=== PATIENT | female | born 1940 | race Caucasian/White ===

== ENCOUNTER 2018-06-29 08:48 | Outpatient (CLI) | payer MEDICARE, MEDICAID | END 2018-06-29 08:49 | disposition home or self-care (01) | LOC: BICMAMMO 08:48 | PROVIDERS: ATTEND Nurse Practitioner Family | DX: Z12.31 Encounter for screening mammogram for malignant neoplasm of breast (principal); R71.8 Other abnormality of red blood cells; E78.2 Mixed hyperlipidemia; R74.8 Abnormal levels of other serum enzymes; Z78.0 Asymptomatic menopausal state; M85.89 Other specified disorders of bone density and structure, multiple sites | CPT/HCPCS: 76705; 77063; 77067; 77080 ==

== ENCOUNTER 2019-04-12 10:50 | Inpatient (IN) | payer MEDICARE, MEDICAID ==
[2019-04-12 11:40] LABS: #Basophils 0.1 thou/uL (0.0-0.2); #Eosinphils 0.1 thou/uL (0.0-0.7); #Lymphocytes 2.3 thou/uL (1.20-3.40); #Monocytes 0.8 thou/uL (0.11-0.59); #Neutrophils 5.8 thou/uL (1.40-6.50); %Basophils 0.9 % (0.0-1.0); %Eosinophils 1.4 % (0.0-10.0); %Lymphocytes 24.8 % (21.0-51.0); %Monocytes 9.1 % (0.0-10.0); %Neutrophils 63.8 % (42.0-75.0); Hemoglobin 15.1 g/dL (12.0-16.0); Mean Corpuscular HGB CONC 33.4 g/dL (32.0-36.0); Mean Corpuscular Hemoglobin 31.4 pg (27.0-31.0); Mean Platelet Volume 7.7 fL (7.4-10.4); Platelet Count 232 thou/uL (130-400); RBC Distribution Width 14.1 % (11.5-14.5); White Blood Cell (WBC) Count 9.1 thou/uL (4.8-10.8)
[2019-04-12 12:00] LABS: Acetaminophen Less than 6.0 mcg/mL (10.0-30.0); Alcohol Less than 10 mg/dL (Less than 10); Salicylate Less than 8.0 mg/dL (15.0-30.0)
[2019-04-12 12:03] LABS: ALT (SGPT) 31 U/L (8-55); AST (SGOT) 155 U/L (5-34); Albumin 4.5 g/dL (3.4-4.8); Alkaline Phosphatase 75 U/L (40-150); Anion Gap 14 mmol/L (10-20); BUN (Urea Nitrogen) 19 mg/dL (9.8-20.1); Bilirubin, Total 0.8 mg/dL (0.2-1.2); CK (CPK) 397 U/L (29-168); Calc. Creatinine Clearance 0 mL/min (70-130); Carbon Dioxide 31 mmol/L (23-31); Chloride 84 mmol/L (98-107); Estimated GFR-MDRD 19; Globulin 3.6 g/dL (2.4-3.5); Glucose 90 mg/dL (83-110); Potassium 3.1 mmol/L (3.5-5.1); Protein, Total 8.1 g/dL (6.0-8.3); Sodium 126 mmol/L (136-145)
--- NOTE | 2019-04-12 12:42 | CT ---
CT CERVICAL SPINE WITH CORONAL AND SAGITTAL REFORMATIONS AND NO IV CONTRAST: HISTORY: Fall, neck pain FINDINGS: Multilevel degenerative changes are present. There is loss of cervical lordosis with mild reversal. No fracture, subluxation or facet malalignment is identified. No prevertebral soft tissue swelling is apparent. The visualized lung apices are unremarkable. IMPRESSION: No CT evidence for fracture or traumatic subluxation.
--- NOTE | 2019-04-12 12:42 | CT ---
BRAIN CT WITHOUT IV CONTRAST: History: Depression. Fall, hitting head one week ago with injury. FINDINGS: Age related atrophy and chronic white matter ischemic change. No mass or midline shift. No intra or e xtraaxial hemorrhage. Sinuses and mastoids are clear of acute process. Minimal motion artifact in the most inferior scan/slice levels. IMPRESSION: Atrophy and chronic white matter ischemic changes without mass or bleed or other acute process. POS: [facility]
[2019-04-12 13:19] LABS: Bilirubin Negative (Negative); Blood, Urine Moderate (Negative); Clarity TURBID (Clear); Glucose, Urine (Dipstick) Negative (Negative); Leukocyte Large (Negative); Nitrite Positive (Negative); Protein, Urine (Dipstick) 30 mg/dL (Neg-Trace); Specific Gravity, Urine 1.013 (1.002-1.036); Urobilinogen 0.2 mg/dL (0.2-1.0); pH, Urine 5.5 (5.0-9.0)
[2019-04-12 13:22] LABS: Bacteria/HPF 4+ HPF (None Seen)
[2019-04-12 13:28] LABS: Amphetamine Not Detected (NotDetected); Barbiturates Screen Not Detected (NotDetected); Benzodiazepine Screen Not Detected (NotDetected); Cocaine Metabolite Screen Not Detected (NotDetected); Medtox Control Line Valid? VALID (VALID); Medtox Reader # READER 1; Methadone Not Detected (NotDetected); Methamphetamine Not Detected (NotDetected); Opiate Screen Not Detected (NotDetected); Oxycodone Screen Not Detected (NotDetected); Phencyclidine (PCP) Not Detected (NotDetected); THC/Cannabinoid Screen Not Detected (NotDetected); Tricyclic Screen Not Detected (NotDetected)
[2019-04-12 13:42] LABS: Hyaline Casts/LPF NONE SEEN LPF (0-3 Hyaline); Other Casts/LPF None Seen LPF (0-3 Hyaline)
[2019-04-12] MEDS ORDERED: Ondansetron ODT 4 MG TAB SL PRN (15:56)
[2019-04-12] MEDS ORDERED: Acetaminophen 325 MG TAB PO PRN (15:56)
[2019-04-12] MEDS ORDERED: Ondansetron PF 4 MG/2 ML Vial IVP PRN (15:56)
[2019-04-12] MEDS ORDERED: Sodium Chloride 0.9% 1,000 ML IV SCH (15:56)
[2019-04-12] MEDS: cefTRIAXone\\ROCEPHIN 2 GM in Sodium Chloride 0.9% 100 ML IVPB SCH (18:44)
[2019-04-12] MEDS: Potassium Chloride 20 MEQ TAB PO SCH ×2 (18:47→22:21)
[2019-04-12] MEDS: Metoprolol Tartrate 25 MG TAB PO SCH (21:07)
[2019-04-12] MEDS: Sodium Chloride 0.9% 1,000 ML IV SCH (21:35)
[2019-04-13] MEDS: Potassium Chloride 20 MEQ TAB PO SCH (02:12)
[2019-04-13 05:36] LABS: Anion Gap 11 mmol/L (10-20); BUN (Urea Nitrogen) 17 mg/dL (9.8-20.1); Calc. Creatinine Clearance 18 mL/min (70-130); Calcium 8.5 mg/dL (7.8-10.44); Carbon Dioxide 29 mmol/L (23-31); Chloride 91 mmol/L (98-107); Estimated GFR-MDRD 26; Glucose 108 mg/dL (83-110); Potassium 3.9 mmol/L (3.5-5.1); Sodium 127 mmol/L (136-145)
[2019-04-13 05:57] LABS: Thyroid Stimulating Hormone 60.5246 uIU/mL (0.35-4.94)
[2019-04-13] MEDS: Sodium Chloride 0.9% 1,000 ML IV SCH ×2 (06:06→20:46)
[2019-04-13 06:25] LABS: Free T4 (Free Thyroxine) Less than 0.40 ng/dL (0.70-1.48)
--- NOTE | 2019-04-13 08:11 | HP ---
CHIEF COMPLAINT: Depression, suicidal ideation, and drug overdose with gabapentin. HISTORY OF PRESENT ILLNESS: Ms. Knutson is an 78-year-old female with past medical history of hypertension, hypothyroidism, anxiety disorder, came with drug overdose of gabapentin. The patient claims she has taken gabapentin about 6 g around 8 p.m. last night with intention of committing suicide. The patient states she is very depressed and does not want to live anymore because there is no one to take care of her. The patient also has a history of fall a week ago sustaining some bruising to the left side of the face. The patient is also not taking fluids very well because she does not want to drink anything because she wants to . The neighbors called EMS because of the patient's condition and she was brought to the ER where she was evaluated and found to have hyponatremia as well as acute kidney injury and she is being admitted for further evaluation and management. PAST MEDICAL HISTORY: 1. Hypertension. 2. Hyperlipidemia. 3. Anxiety disorder. 4. Hypothyroidism. PAST SURGICAL HISTORY: Status post stent placement, status post . CURRENT MEDICATIONS: The patient takes: 1. Gabapentin 600 mg t.i.d. 2. Metoprolol 25 mg b.i.d. 3. Levothyroxine possibly 50 mcg daily. ALLERGIES: NKDA. FAMILY HISTORY: Nothing contributory. SOCIAL HISTORY: The patient lives with her . No history of smoking. No history of alcohol abuse. REVIEW OF SYSTEMS: CARDIOVASCULAR: No chest pain. No shortness of breath. RESPIRATORY: No fever or cough. GASTROINTESTINAL: No nausea, vomiting, or abdominal pain. CENTRAL NERVOUS SYSTEM: No headache. No dizziness. PHYSICAL EXAMINATION: GENERAL: The patient is alert, awake, and oriented x2. VITAL SIGNS: Temperature 98, pulse 64, respirations 20, and blood pressure 170/100. HEENT: Head is normocephalic, atraumatic. Pupils are equal and reactive to light. Nasopharynx is pale and dry. NECK: Supple. No JVD. LUNGS: Breath sounds diminished bilaterally. Percussion dull. No rales. No rhonchi. HEART: S1 and S2, regular. ABDOMEN: Soft. No distention. No tenderness. Normal bowel sounds present. RECTAL: Deferred. CENTRAL NERVOUS SYSTEM: The patient is awake and alert, but not well oriented. Motor system, power 4/5 in all extremities. Deep tendon reflex 2+ bilaterally. Plantars downgoing. Sensory intact. SKIN: There is ecchymosis on the left side of the face. LABORATORY DATA: CBC shows WBC 9, hemoglobin 15, hematocrit 45, and platelets 232. Metabolic panel; sodium 126, potassium 3.1, chloride 84, CO2 31, BUN 19, creatinine 2.4, AST 155, TSH was 80. Urinalysis showed wbc's greater than 50, rbc's 7-10, leukocyte esterase large, bacteria 4+. Urine drug screen negative. CT of the brain showed chronic white matter ischemic changes without any acute changes. CTA of the C-spine was negative. EKG showed sinus rhythm, no acute ST-T changes seen. ASSESSMENT: 1. Drug overdose with gabapentin and suicidal ideation. 2. Acute kidney injury. 3. Urinary tract infection. 4. Hypertension, uncontrolled. 5. Hypokalemia. 6. Hyponatremia. 7. Depression. 8. History of coronary artery disease. PLAN: 1. Vital signs q.4 hours. 2. Activity as tolerated. 3. Allergies, NKDA. 4. Diet, regular. 5. IV fluid, normal saline at 80 mL/h. 6. KCl replacement. 7. Continue home medications. 8. Rocephin 2 g IV piggyback daily. 9. Urine cultures. 10. [facility] consult. Job ID: [id number]
[2019-04-13] MEDS: Metoprolol Tartrate 25 MG TAB PO SCH ×2 (08:31→20:49)
[2019-04-13] MEDS ORDERED: Levothyroxine Sodium 100 MCG TAB PO SCH (10:00)
[2019-04-13] MEDS: cefTRIAXone\\ROCEPHIN 2 GM in Sodium Chloride 0.9% 100 ML IVPB SCH (18:01)
[2019-04-13] MEDS: Mirtazapine 15 MG TAB PO SCH (20:49)
[2019-04-14] MEDS: Sodium Chloride 0.9% 1,000 ML IV SCH (01:21)
[2019-04-14] MEDS: Levothyroxine Sodium 100 MCG TAB PO SCH (05:29)
[2019-04-14 05:46] VITALS: BMI 22.6
[2019-04-14] MEDS: Metoprolol Tartrate 25 MG TAB PO SCH ×2 (08:49→20:27)
[2019-04-14 10:09] LABS: #Basophils 0.1 thou/uL (0.0-0.2); #Eosinphils 0.1 thou/uL (0.0-0.7); #Lymphocytes 1.7 thou/uL (1.20-3.40); #Monocytes 0.5 thou/uL (0.11-0.59); #Neutrophils 3.9 thou/uL (1.40-6.50); %Basophils 0.9 % (0.0-1.0); %Eosinophils 1.6 % (0.0-10.0); %Lymphocytes 27.4 % (21.0-51.0); %Monocytes 8.5 % (0.0-10.0); %Neutrophils 61.6 % (42.0-75.0); Hemoglobin 13.7 g/dL (12.0-16.0); Mean Corpuscular HGB CONC 33.4 g/dL (32.0-36.0); Mean Corpuscular Hemoglobin 31.8 pg (27.0-31.0); Mean Corpuscular Volume 95.3 fL (78.0-98.0); Mean Platelet Volume 7.4 fL (7.4-10.4); Platelet Count 191 thou/uL (130-400); RBC Distribution Width 14.3 % (11.5-14.5); Red Blood Cell (RBC) Count 4.32 mill/uL (4.20-5.40); White Blood Cell (WBC) Count 6.3 thou/uL (4.8-10.8)
[2019-04-14 10:29] LABS: Anion Gap 10 mmol/L (10-20); BUN (Urea Nitrogen) 14 mg/dL (9.8-20.1); Calc. Creatinine Clearance 27 mL/min (70-130); Calcium 8.6 mg/dL (7.8-10.44); Carbon Dioxide 28 mmol/L (23-31); Cardiac Risk 3.6 (Less than 4.5); Chloride 97 mmol/L (98-107); Cholesterol 241 mg/dl (< 200 Desired); Estimated GFR-MDRD 35; Glucose 88 mg/dL (83-110); HDL Cholesterol 67 mg/dL (>60 Neg Risk); LDL Cholesterol, Calculated 149 mg/dL; Potassium 3.5 mmol/L (3.5-5.1); Sodium 131 mmol/L (136-145); Triglycerides 125 mg/dL (Less than 150)
[2019-04-14] MEDS: cefTRIAXone\\ROCEPHIN 2 GM in Sodium Chloride 0.9% 100 ML IVPB SCH (17:19)
[2019-04-14] MEDS ORDERED: Potassium Chloride 20 MEQ TAB PO SCH (20:15)
[2019-04-14] MEDS: Ciprofloxacin 500 MG TAB PO SCH (20:27)
[2019-04-14] MEDS: Mirtazapine 15 MG TAB PO SCH (20:28)
[2019-04-15] MEDS: Ciprofloxacin 500 MG TAB PO SCH ×2 (05:10→20:04)
[2019-04-15] MEDS: Levothyroxine Sodium 100 MCG TAB PO SCH (05:10)
[2019-04-15] MEDS: Metoprolol Tartrate 25 MG TAB PO SCH (08:20)
--- NOTE | 2019-04-15 09:36 | PQF ---
CLINICAL DOCUMENTATION IMPROVEMENT CLARIFICATION FORM: ICD-10 Updated PLEASE DO AN ADDENDUM TO THE PROGRESS NOTE WITH ANY DOCUMENTATION UPDATES OR ADDITIONS AND CARRY THROUGH TO DC SUMMARY. THANK YOU. DATE: 04/15/2019 ATTN: Dr. Arora Please exercise your independent, professional judgment in responding to the clarification form. Clinical indicators are provided on the bottom of this form for your review Please check appropriate box(s): [y ] I (concur) with the Wound Care findings as stated below. [ ] Pressure Ulcer: (Stage I: Erythema; Stage II: Partial thickness; Stage III : Full thickness; Stage IV: Necrosis to muscle/bone) [ ] Location: POA: [ ] Yes [ ] No [ ] Unable to determine Stage (I to IV): __(Left__Right__Bilateral__N/A__) [ ] Location: POA: [ ] Yes [ ] No [ ] Unable to determine Stage (I to IV): __(Left__Right__Bilateral__N/A__) [ ] No pressure ulcer diagnosis [ ] Deep tissue injury [ ] Other diagnosis [ ] Unable to determine In addition, please specify: Present on Admission (POA): [y ] Yes [ ] No [ ] Unable to determine For continuity of documentation, please document condition throughout progress notes and discharge summary. Thank You. CLINICAL INDICATORS - SIGNS / SYMPTOMS / LABS WOUND CARE ASSESSMENT 04/13: Coccyx Pressure Ulcer Stage III RISKS: H&P 04/12: 78 yo. Drug overdose with gabapentin and suicidal ideation. GLADYS. UTI. HTN. Hyponatremia. Depression. TREATMENT: Order 04/12: Wound Care Eval / Treat Pre-ulcer skin changes limited to persistent focal edema (Stage 1) Abrasion, blister, partial thickness skin loss involving epidermis and/or dermis (Stage 2) Full thickness skin loss involving damage or necrosis of SQ tissue. (Stage 3) Necrosis of soft tissue through to underlying muscle, tendon, or bone. (Stage 4) Purple or maroon discolored skin or blood filled blister Thank you, Akanksha (This form is maintained as a part of the permanent medical record) 2015 [employer], [employer]. All Rights Reserved Akanksha Alves RN, [email or web address] [email or web address] Office: [phone] [facility]
[2019-04-15] MEDS ORDERED: Metoprolol Tartrate 25 MG TAB PO SCH (10:45)
[2019-04-15] MEDS: Metoprolol Tartrate 50 MG TAB PO SCH (20:04)
[2019-04-15] MEDS: Mirtazapine 15 MG TAB PO SCH (20:04)
[2019-04-16] MEDS: Ciprofloxacin 500 MG TAB PO SCH ×2 (05:17→20:09)
[2019-04-16] MEDS: Levothyroxine Sodium 100 MCG TAB PO SCH (05:17)
[2019-04-16 06:57] LABS: #Basophils 0.1 thou/uL (0.0-0.2); #Eosinphils 0.2 thou/uL (0.0-0.7); #Lymphocytes 2.4 thou/uL (1.20-3.40); #Monocytes 0.6 thou/uL (0.11-0.59); #Neutrophils 4.4 thou/uL (1.40-6.50); %Eosinophils 2.7 % (0.0-10.0); %Lymphocytes 31.5 % (21.0-51.0); %Monocytes 7.3 % (0.0-10.0); %Neutrophils 57.6 % (42.0-75.0); Hemoglobin 13.3 g/dL (12.0-16.0); Mean Corpuscular HGB CONC 33.4 g/dL (32.0-36.0); Mean Corpuscular Hemoglobin 31.9 pg (27.0-31.0); Mean Corpuscular Volume 95.4 fL (78.0-98.0); Mean Platelet Volume 7.8 fL (7.4-10.4); Platelet Count 180 thou/uL (130-400); RBC Distribution Width 14.3 % (11.5-14.5); Red Blood Cell (RBC) Count 4.17 mill/uL (4.20-5.40); White Blood Cell (WBC) Count 7.6 thou/uL (4.8-10.8)
[2019-04-16 07:19] LABS: Anion Gap 13 mmol/L (10-20); BUN (Urea Nitrogen) 9 mg/dL (9.8-20.1); Calc. Creatinine Clearance 32 mL/min (70-130); Calcium 8.7 mg/dL (7.8-10.44); Carbon Dioxide 25 mmol/L (23-31); Chloride 96 mmol/L (98-107); Estimated GFR-MDRD 42; Glucose 90 mg/dL (83-110); Potassium 4.6 mmol/L (3.5-5.1); Sodium 129 mmol/L (136-145)
[2019-04-16] MEDS: Metoprolol Tartrate 50 MG TAB PO SCH ×2 (08:04→20:16)
[2019-04-16] MEDS ORDERED: Amlodipine 5 MG TAB PO SCH (13:15)
[2019-04-16] MEDS ORDERED: Ondansetron PF 4 MG/2 ML Vial IVP SCH (17:00)
[2019-04-16] MEDS: Mirtazapine 15 MG TAB PO SCH (20:09)
[2019-04-16] MEDS ORDERED: Ondansetron ODT 4 MG TAB PO SCH (21:00)
[2019-04-17] MEDS: Ciprofloxacin 500 MG TAB PO SCH ×2 (06:12→20:42)
[2019-04-17] MEDS: Levothyroxine Sodium 100 MCG TAB PO SCH (06:12)
[2019-04-17] MEDS: Amlodipine 5 MG TAB PO SCH (09:32)
[2019-04-17] MEDS: Metoprolol Tartrate 50 MG TAB PO SCH ×2 (09:32→20:42)
[2019-04-17] MEDS: Mirtazapine 15 MG TAB PO SCH (20:42)
[2019-04-18] MEDS: Levothyroxine Sodium 100 MCG TAB PO SCH (06:14)
[2019-04-18] MEDS: Ciprofloxacin 500 MG TAB PO SCH ×2 (06:14→20:03)
[2019-04-18] MEDS: Amlodipine 5 MG TAB PO SCH (09:02)
[2019-04-18] MEDS: Metoprolol Tartrate 50 MG TAB PO SCH ×2 (09:03→20:04)
[2019-04-18 11:56] LABS: Anion Gap 10 mmol/L (10-20); BUN (Urea Nitrogen) 9 mg/dL (9.8-20.1); Calc. Creatinine Clearance 32 mL/min (70-130); Carbon Dioxide 30 mmol/L (23-31); Chloride 91 mmol/L (98-107); Estimated GFR-MDRD 42; Glucose 89 mg/dL (83-110); Potassium 3.9 mmol/L (3.5-5.1); Sodium 127 mmol/L (136-145)
[2019-04-18] MEDS: Sodium Chloride 0.9% 1,000 ML IV SCH ×4 (14:17→20:09)
[2019-04-18 16:58] LABS: Potassium, Urine 40.8 mmol/L
[2019-04-18] MEDS: Ondansetron ODT 4 MG TAB PO PRN (18:15)
[2019-04-18] MEDS: Mirtazapine 15 MG TAB PO SCH (20:04)
[2019-04-19] MEDS: Levothyroxine Sodium 100 MCG TAB PO SCH (05:33)
[2019-04-19] MEDS: Sodium Chloride 0.9% 1,000 ML IV SCH (05:34)
[2019-04-19] MEDS: Ciprofloxacin 500 MG TAB PO SCH ×2 (05:34→21:14)
[2019-04-19 06:52] LABS: White Blood Cell (WBC) Count 7.3 thou/uL (4.8-10.8)
[2019-04-19 06:54] LABS: Anion Gap 13 mmol/L (10-20); BUN (Urea Nitrogen) 10 mg/dL (9.8-20.1); Calc. Creatinine Clearance 39 mL/min (70-130); Calcium 8.4 mg/dL (7.8-10.44); Carbon Dioxide 22 mmol/L (23-31); Chloride 95 mmol/L (98-107); Estimated GFR-MDRD 52; Glucose 79 mg/dL (83-110); Potassium 3.7 mmol/L (3.5-5.1); Sodium 126 mmol/L (136-145)
[2019-04-19 06:57] LABS: Band 7 % (5-11); Eosinophils 2 % (0-10); Hemoglobin 12.5 g/dL (12.0-16.0); Lymphocytes 31 % (21-51); MDiff Complete? YES; Mean Corpuscular HGB CONC 33.8 g/dL (32.0-36.0); Mean Corpuscular Hemoglobin 32.1 pg (27.0-31.0); Mean Corpuscular Volume 95.2 fL (78.0-98.0); Mean Platelet Volume 8.8 fL (7.4-10.4); Monocytes 13 % (0-10); Neutrophil 45 % (42-75); Platelet Count 144 thou/uL (130-400); RBC Distribution Width 14.4 % (11.5-14.5); Reactive Lymphocytes 2 % (0-10)
[2019-04-19] MEDS: Metoprolol Tartrate 50 MG TAB PO SCH ×2 (09:55→21:13)
[2019-04-19] MEDS: Amlodipine 5 MG TAB PO SCH ×2 (09:55→12:04)
[2019-04-19] MEDS ORDERED: Furosemide 20 MG/2 ML VIAL SLOW IVP SCH (10:45)
[2019-04-19 17:24] LABS: Creatinine, Urine Less than 20.00 mg/dL (47-110); Sodium, Urine 102 mmol/L (Not Available)
[2019-04-19] MEDS: Mirtazapine 15 MG TAB PO SCH (21:14)
--- NOTE | 2019-04-19 21:23 | CON ---
DATE OF CONSULTATION: HISTORY OF PRESENT ILLNESS: Ms. Knutson is an 78-year-old white female with known history of depression and tried to overdose with her medication gabapentin. She was noted to be hyponatremic. Review of her medical record showed that she is chronically hyponatremic. We are now being consulted for further management of this hyponatremia. Of interest, this patient is asymptomatic with her hyponatremia. REVIEW OF SYSTEMS: Positive for decreased hearing. No chest pain or shortness of breath. No syncopal episode. No productive cough. No abdominal pain. No nausea. No vomiting. No gross hematuria. No dysuria. No urinary frequency. Appetite and energy levels are fair. HOME MEDICATIONS: Included gabapentin 600 mg p.o. t.i.d., metoprolol 25 mg b.i.d., and levothyroxine 200 mcg tablet daily. PAST MEDICAL HISTORY: Chronic hyponatremia, hypertension, hyperlipidemia, anxiety disorder, hypothyroidism and history of rheumatoid arthritis?. PAST SURGICAL HISTORY: Status post cardiac cath, status post coronary stent placement, and status post section. SOCIAL HISTORY: The patient lives in [place]. Lives with her and 2 children with 1 . No alcohol intake. No smoking. No drug abuse. No blood transfusion. Education, nursing school. 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 FAMILY HISTORY: No family history of ESRD. ALLERGIES: NO KNOWN DRUG ALLERGIES. TRAUMA: Recently status post fall. IMMUNIZATION: Not up-to-date. HOSPITALIZATIONS: Please see past medical history. PHYSICAL EXAMINATION: VITAL SIGNS: Blood pressure is noted at 153/64, heart rate 64, respiratory rate 16, temperature 97.7, and pulse oximetry 98%. GENERAL: Noted to be awake, alert, comfortable, not in distress. SKIN: Adequate turgor. HEENT: Pinkish conjunctivae. Anicteric sclerae. No neck mass. No carotid bruits. No JVD. CHEST: No deformities. LUNGS: Clear breath sounds. HEART: Normal sinus rhythm. No murmur. No gallops. No rubs. ABDOMEN: Globular, soft, nontender. No masses. EXTREMITIES: No edema. No deformities. HOSPITAL MEDICATIONS: Included Norvasc 5 mg daily, Cipro 500 mg p.o. b.i.d., levothyroxine 200 mcg tablet daily, Lopressor 50 mg p.o. b.i.d., Remeron 15 mg at bedtime, Zofran p.r.n., and Protonix 40 mg tablet once a day. LABORATORIES: April 19, 2019; white count 7.3, hemoglobin 12.5, platelet count 144,000. Urine sodium is 102, urine creatinine is 20. Urine osmolality 255. On April 16, 2019, urinalysis, protein is 30, rbc's 7-10, wbc's greater than 50. April 19, 2019, sodium 126, potassium 3.7, chloride 95, carbon dioxide 22, BUN 10, creatinine 1.02, glucose 79, calcium 8.4, uric acid 2.3 - markedly decreased. April 18, 2019, sodium 127. April 16, 2019, sodium 129. April 14, 2019, sodium is 131. April 19, creatinine 1.02, April 18, creatinine 1.24 and April 14, 2019, creatinine 1.45. April 13, 2019, creatinine 1.89. April 12, 2019, creatinine was 2.46. June 09, 2018 creatinine 1.49. ASSESSMENT AND PLAN: 1. Acute kidney injury - consider hemodynamically-mediated renal dysfunction. The patient was empirically volume repleted with significant improvement of the renal dysfunction. Most recent creatinine now is 1.02, which is near normal. Continue to hold of any nephrotoxic drugs - hold off any diuretics or NSAIDs. 2. Chronic hyponatremia - with the low uric acid. I suspect this patient may have underlying syndrome of inappropriate antidiuretic hormone secretion. Continue free water restriction. Consider starting on sodium chloride 1 g p.o. t.i.d. It is also possible that this patient's hypothyroidism may be contributing to her hyponatremia. Please note, she had a TSH of 60.5. It is currently being corrected with levothyroxine/Synthroid replacement. Please note that the TSH was higher on the day of admission where it was noted to be at 80.3. 3. Since the patient is clinically asymptomatic, there is no indication to give her any hypertonic saline. Sodium chloride 1000 g t.i.d. will be started. 4. Overall agree with current management of syndrome of inappropriate antidiuretic hormone secretion. supportive. Continue to optimize her thyroid replacement. Job ID: [id number]
[2019-04-20 06:00] LABS: Anion Gap 10 mmol/L (10-20); BUN (Urea Nitrogen) 11 mg/dL (9.8-20.1); Calc. Creatinine Clearance 37 mL/min (70-130); Calcium 8.4 mg/dL (7.8-10.44); Carbon Dioxide 27 mmol/L (23-31); Chloride 92 mmol/L (98-107); Estimated GFR-MDRD 49; Glucose 85 mg/dL (83-110); Potassium 3.4 mmol/L (3.5-5.1); Sodium 126 mmol/L (136-145)
[2019-04-20] MEDS: Levothyroxine Sodium 100 MCG TAB PO SCH (06:09)
[2019-04-20] MEDS: Ciprofloxacin 500 MG TAB PO SCH ×2 (06:09→20:03)
[2019-04-20] MEDS ORDERED: Potassium Chloride 20 MEQ TAB PO SCH (08:15)
[2019-04-20] MEDS: Sodium Chloride 1 GM TAB PO SCH ×3 (09:09→20:03)
[2019-04-20] MEDS: Metoprolol Tartrate 50 MG TAB PO SCH ×3 (09:09→20:03)
--- NOTE | 2019-04-20 10:05 | PRG ---
DATE OF SERVICE: 04/20/2019 SUBJECTIVE: Ms. Knutson is an 78-year-old white female, being seen for her acute kidney injury and hyponatremia. Initially, creatinine was noted to be elevated at value of 2.46 and she received volume repletion. This improved the creatinine to a best value of 1.08. Her GFR is now 49 mL/minute and places her at stage 3 chronic renal failure. She also was noted to be hyponatremic. Initial workup of the hyponatremia suggests she may have SIADH. She has also known history of hypothyroidism. No new complaints today. No chest pain or shortness of breath. OBJECTIVE: VITAL SIGNS: Blood pressure 109/62, heart rate 55, respiratory rate 16, temperature 98.1, and pulse oximetry 94%. GENERAL: Awake, alert, comfortable, not in distress. SKIN: Adequate turgor. HEENT: She has pinkish conjunctivae, anicteric sclerae. No neck mass. No carotid bruits. No JVD. CHEST: No deformities. LUNGS: Clear breath sounds. No wheezing. No crackles. HEART: Normal sinus rhythm. No murmur. No gallops. No rubs. ABDOMEN: Globular, soft, nontender. No masses. EXTREMITIES: No edema. MEDICATIONS: Medications of April 20, 2019, reviewed. LABORATORY DATA: Laboratories of April 19, 2019; white count 7.8, hemoglobin 12.5. April 20, 2019; sodium 126, potassium 3.4, chloride 92, carbon dioxide 27, BUN 11, creatinine 1.08, calcium 8.4. ASSESSMENT AND PLAN: 1. 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 Sodium chloride 1 g t.i.d. was given. No indication for any hypertonic saline for the moment. The patient is mentating well. 2. Hypokalemia, p.r.n. potassium replacement. 3. Acute kidney injury, much improved with volume repletion. She most likely had hemodynamically-mediated renal dysfunction. Her chronic renal failure is of uncertain etiology. 4. She is currently stage 3 chronic renal failure. 5. Recheck basic metabolic profile and CBC in a.m. Job ID: [id number]
[2019-04-20] MEDS: Amlodipine 5 MG TAB PO SCH ×2 (11:00→16:51)
[2019-04-20] MEDS: Mirtazapine 15 MG TAB PO SCH (20:03)
[2019-04-20] MEDS: Ondansetron ODT 4 MG TAB PO PRN (20:06)
[2019-04-21] MEDS: Levothyroxine Sodium 100 MCG TAB PO SCH (05:04)
[2019-04-21] MEDS: Ciprofloxacin 500 MG TAB PO SCH ×2 (05:04→21:43)
[2019-04-21 05:45] LABS: #Basophils 0.1 thou/uL (0.0-0.2); #Eosinphils 0.2 thou/uL (0.0-0.7); #Lymphocytes 2.2 thou/uL (1.20-3.40); #Monocytes 0.7 thou/uL (0.11-0.59); #Neutrophils 3.4 thou/uL (1.40-6.50); %Basophils 1.4 % (0.0-1.0); %Eosinophils 2.3 % (0.0-10.0); %Lymphocytes 33.6 % (21.0-51.0); %Monocytes 11.3 % (0.0-10.0); %Neutrophils 51.4 % (42.0-75.0); Hemoglobin 12.1 g/dL (12.0-16.0); Mean Corpuscular HGB CONC 33.8 g/dL (32.0-36.0); Mean Corpuscular Volume 94.7 fL (78.0-98.0); Mean Platelet Volume 7.6 fL (7.4-10.4); Platelet Count 205 thou/uL (130-400); RBC Distribution Width 14.2 % (11.5-14.5); Red Blood Cell (RBC) Count 3.79 mill/uL (4.20-5.40); White Blood Cell (WBC) Count 6.5 thou/uL (4.8-10.8)
[2019-04-21 06:11] LABS: Anion Gap 11 mmol/L (10-20); BUN (Urea Nitrogen) 13 mg/dL (9.8-20.1); Calc. Creatinine Clearance 34 mL/min (70-130); Calcium 8.9 mg/dL (7.8-10.44); Carbon Dioxide 26 mmol/L (23-31); Chloride 95 mmol/L (98-107); Estimated GFR-MDRD 45; Glucose 83 mg/dL (83-110); Potassium 3.9 mmol/L (3.5-5.1); Sodium 128 mmol/L (136-145)
[2019-04-21] MEDS: Metoprolol Tartrate 50 MG TAB PO SCH (08:19)
[2019-04-21] MEDS: Sodium Chloride 1 GM TAB PO SCH ×3 (08:19→21:43)
--- NOTE | 2019-04-21 10:06 | PRG ---
DATE OF SERVICE: 04/21/2019 SUBJECTIVE: Ms. Knutson is an 78-year-old white female, who was seen for an acute kidney injury that was hemodynamically-mediated renal dysfunction and improved with IV hydration. She was also seen for her hyponatremia secondary to presumed SIADH. She was started on sodium chloride 1 g t.i.d. This morning, she voices no new complaints. Her mentation is stable. No complaints of chest pain or shortness of breath. OBJECTIVE: VITAL SIGNS: Blood pressure is 111/65, heart rate 68, respiratory rate 18, temperature 97.8, and pulse ox 92%. GENERAL: Awake, alert, comfortable, not in distress. SKIN: Adequate turgor. HEENT: She has a pinkish conjunctivae. Anicteric sclerae. NECK: No neck mass. No carotid bruits. No JVD. CHEST: No deformities. LUNGS: Clear breath sounds. No wheezing. No crackles. HEART: Normal sinus rhythm. No murmurs, gallops, or rubs. ABDOMEN: Globular, soft, and nontender. No masses. EXTREMITIES: No edema. No deformities. MEDICATIONS: Medications of April 21, 2019, were reviewed. LABORATORY DATA: Laboratories of April 21, 2019, white count 6.5 and hemoglobin 12.1. April 21, 2019, chemistry; sodium 128, potassium 3.9, chloride 95, carbon dioxide 26, BUN 13, creatinine 1.16, glucose 83, and calcium 8.9. ASSESSMENT AND PLAN: 1. Acute kidney injury - hemodynamically-mediated dysfunction, improved with IV hydration. 2. Chronic renal failure. Currently, GFR is 45 mL/minute. She is at stage 3 chronic renal failure. Continue supportive care. The exact etiology of the chronic renal failure is unclear. Although the possibility of intrinsic renal problem remains such as hypertensive nephropathy. 3. Hyponatremia. This is secondary to a syndrome of inappropriate antidiuretic hormone secretion. The patient has been started with sodium chloride 1 g p.o. t.i.d. There is a slight improvement with the serum sodium. No indication for any hypertonic IV saline. Overall, agree with current management. Job ID: [id number]
[2019-04-21] MEDS: Mirtazapine 15 MG TAB PO SCH (21:43)
[2019-04-21] MEDS: Metoprolol Tartrate 25 MG TAB PO SCH (21:43)
[2019-04-22] MEDS: Levothyroxine Sodium 100 MCG TAB PO SCH (06:02)
[2019-04-22] MEDS: Ciprofloxacin 500 MG TAB PO SCH (06:02)
[2019-04-22] MEDS: Metoprolol Tartrate 25 MG TAB PO SCH ×2 (08:13→21:07)
[2019-04-22] MEDS: Sodium Chloride 1 GM TAB PO SCH ×3 (08:13→21:07)
[2019-04-22 09:31] LABS: Anion Gap 9 mmol/L (10-20); BUN (Urea Nitrogen) 15 mg/dL (9.8-20.1); Calc. Creatinine Clearance 31 mL/min (70-130); Calcium 9.3 mg/dL (7.8-10.44); Carbon Dioxide 29 mmol/L (23-31); Chloride 95 mmol/L (98-107); Estimated GFR-MDRD 40; Glucose 88 mg/dL (83-110); Sodium 129 mmol/L (136-145)
--- NOTE | 2019-04-22 10:11 | PRG ---
DATE OF SERVICE: 04/22/2019 SUBJECTIVE: Ms. Knutson is an 78-year-old white female, seen by the Renal Service for her acute kidney injury/chronic hyponatremia secondary to presumed SIADH. Her renal function has stabilized in the last few days. She most likely has underlying hypertensive nephropathy. The worsening renal dysfunction previously was secondary to some degree of volume depletion. We are also seeing her for hyponatremia. She is currently on a free water restriction as well as sodium chloride supplementation. No new complaints today. She is mentating well. OBJECTIVE: VITAL SIGNS: Blood pressure 125/62, heart rate 61, respiratory rate 16, temperature 98.2, and pulse ox 92%. GENERAL: Noted to be awake, alert, comfortable, not in distress. SKIN: Adequate turgor. HEENT: Pinkish conjunctivae. Anicteric sclerae. NECK: No neck mass. No carotid bruits. No JVD. CHEST: No deformities. LUNGS: Clear breath sounds. No wheezing. No crackles. HEART: Normal sinus rhythm. No murmur. No gallops. No rubs. ABDOMEN: Globular, soft, nontender. No masses. EXTREMITIES: No edema. No deformities. MEDICATIONS: Medications of April 22, 2019, were reviewed. LABORATORY DATA: Laboratories of April 21, 2019: White count 6.5, hemoglobin 12.1. Sodium 128, potassium 3.9, chloride 95, carbon dioxide 26, BUN 13, creatinine 1.16, calcium 8.9. Basic metabolic of April 22, 2019, pending. ASSESSMENT AND PLAN: 1. Chronic hyponatremia secondary to syndrome of inappropriate antidiuretic hormone secretion. Continue supportive care. Continue free water restriction. Continue sodium chloride 1 g p.o. t.i.d. No indication for any hypertonic IV saline for the moment. 2. Acute kidney injury/chronic renal failure. Supportive care. We will be rechecking another renal function. She most likely has a hemodynamically-mediated renal dysfunction. 3. Recheck basic metabolic today and in a.m. Job ID: [id number]
--- NOTE | 2019-04-22 14:16 | PQF ---
CLINICAL DOCUMENTATION IMPROVEMENT CLARIFICATION FORM: ICD-10 Updated PLEASE DO AN ADDENDUM TO THE PROGRESS NOTE WITH ANY DOCUMENTATION UPDATES OR ADDITIONS AND CARRY THROUGH TO DC SUMMARY. THANK YOU. DATE: 04/22/2019 ATTN: Dr. Arora Please exercise your independent, professional judgment in responding to the clarification form. Clinical indicators are provided on the bottom of this form for your review Please check appropriate box(s): [ ] Encephalopathy: Type: [ ] Acute [ ] Subacute [ ] Chronic Etiology: [ y ] Metabolic [ ] Toxic [ ] Drug induced: [ ] Unspecified [ ] Other (please specify) [ ] Other diagnosis [ ] Unable to determine In addition, please specify: Present on Admission (POA): [y ] Yes [ ] No [ ] Unable to determine For continuity of documentation, please document condition throughout progress notes and discharge summary. Thank You. CLINICAL INDICATORS - SIGNS / SYMPTOMS / LABS H&P 04/20: PE: The pt is awake and alert, but not well oreinted. LAB: sodium 126 Drug overdose with gabapentin and suicidal ideation. GLADYS UTI Hyponatremia PN 04/20: Hyponatremia - SIADH Encephalopathy 04/21 (Correa) Her mentation is stable. There is slight improvement with the serum sodium RISKS: H&P: Drug overdose with gabapentin. UTI. HTN, uncontrolled. Hypokalemia. Hyponatremia Depression. TREATMENT: Order 04/18-04/19: NS IV 100 mls/hr. Order 04/20: Sodium Chloride 1 gm po TID Thank you, Akanksha (This form is maintained as a part of the permanent medical record) 2014 [email or web address], [email or web address]. All Rights Reserved Akanksha Alves RN, BSN [email or web address] Office: [phone] [facility]
[2019-04-22] MEDS: Mirtazapine 15 MG TAB PO SCH (21:07)
[2019-04-23 05:10] LABS: Anion Gap 13 mmol/L (10-20); BUN (Urea Nitrogen) 12 mg/dL (9.8-20.1); Calc. Creatinine Clearance 40 mL/min (70-130); Calcium 8.8 mg/dL (7.8-10.44); Carbon Dioxide 22 mmol/L (23-31); Chloride 98 mmol/L (98-107); Estimated GFR-MDRD 55; Glucose 83 mg/dL (83-110); Potassium 3.9 mmol/L (3.5-5.1); Sodium 129 mmol/L (136-145)
[2019-04-23] MEDS: Levothyroxine Sodium 100 MCG TAB PO SCH (05:48)
[2019-04-23] MEDS: Metoprolol Tartrate 25 MG TAB PO SCH ×2 (08:18→22:17)
[2019-04-23] MEDS: Sodium Chloride 1 GM TAB PO SCH ×3 (08:18→22:24)
--- NOTE | 2019-04-23 11:17 | PRG ---
DATE OF SERVICE: 04/23/2019 SUBJECTIVE: Ms. Knutson is an 78-year-old white female, who was seen for her acute kidney injury/hyponatremia. The patient was given volume depletion with improvement of the renal function. In addition, her hyponatremia secondary to most likely possibility of SIADH. She has been placed on free water restriction, currently on sodium chloride 1 g p.o. t.i.d. Serum sodium is holding steady. No other complaints today. No chest pain or shortness of breath. No mentation changes. OBJECTIVE: VITAL SIGNS: Blood pressure 143/65, heart rate 62, respiratory rate 17, temperature 98, and pulse ox 95%. GENERAL: Awake, alert, supine, comfortable, not in overt distress. SKIN: Adequate turgor. HEENT: She has pinkish conjunctivae. Anicteric sclerae. NECK: No neck mass. No carotid bruits. No JVD. CHEST: No deformities. LUNGS: Clear breath sounds. No wheezing. No crackles. HEART: Normal sinus rhythm. No murmurs, gallops, or rubs. ABDOMEN: Globular. Soft and nontender. No masses. EXTREMITIES: No edema. MEDICATIONS: Medications of April 23, 2019, were reviewed. LABORATORY DATA: Laboratories of April 21, 2019; white count 6.5 and hemoglobin 12.1. On April 23, 2019; sodium 129, potassium 3.9, chloride 98, carbon dioxide 22, BUN 12, creatinine 0.98, glucose 83, and calcium 8.8. ASSESSMENT AND PLAN: 1. Chronic hyponatremia-secondary to presumed syndrome of inappropriate antidiuretic hormone secretion, stable serum sodium. Continue free water restriction. Continue sodium chloride tablets 1 g p.o. t.i.d. No indication for any IV hypertonic saline. 2. Acute kidney injury-hemodynamically mediated dysfunction. Creatinine is much improved. Most recent creatinine now is 0.98. Overall, agree with current management. 3. Recheck basic metabolic panel in a.m. Job ID: [id number]
[2019-04-23] MEDS: Mirtazapine 15 MG TAB PO SCH (22:18)
[2019-04-24] MEDS: Levothyroxine Sodium 100 MCG TAB PO SCH (05:44)
[2019-04-24 06:10] LABS: Anion Gap 11 mmol/L (10-20); BUN (Urea Nitrogen) 12 mg/dL (9.8-20.1); Calc. Creatinine Clearance 44 mL/min (70-130); Calcium 8.7 mg/dL (7.8-10.44); Carbon Dioxide 24 mmol/L (23-31); Chloride 96 mmol/L (98-107); Estimated GFR-MDRD 60; Glucose 83 mg/dL (83-110); Potassium 3.8 mmol/L (3.5-5.1); Sodium 127 mmol/L (136-145)
[2019-04-24 06:28] LABS: Free T4 (Free Thyroxine) 0.92 ng/dL (0.70-1.48); Thyroid Stimulating Hormone 26.5416 uIU/mL (0.35-4.94)
[2019-04-24 08:15] LABS: #Eosinphils 0.2 thou/uL (0.0-0.7); #Monocytes 0.6 thou/uL (0.11-0.59); #Neutrophils 2.5 thou/uL (1.40-6.50); %Basophils 0.6 % (0.0-1.0); %Lymphocytes 38.3 % (21.0-51.0); %Monocytes 11.6 % (0.0-10.0); %Neutrophils 46.4 % (42.0-75.0); Hemoglobin 11.8 g/dL (12.0-16.0); Mean Corpuscular Hemoglobin 32.8 pg (27.0-31.0); Mean Corpuscular Volume 93.7 fL (78.0-98.0); Mean Platelet Volume 8.3 fL (7.4-10.4); Platelet Count 235 thou/uL (130-400); RBC Distribution Width 14.3 % (11.5-14.5); White Blood Cell (WBC) Count 5.3 thou/uL (4.8-10.8)
[2019-04-24] MEDS: Metoprolol Tartrate 25 MG TAB PO SCH ×2 (08:40→21:06)
[2019-04-24] MEDS: Sodium Chloride 1 GM TAB PO SCH ×3 (08:40→21:06)
--- NOTE | 2019-04-24 16:08 | HP ---
SUBJECTIVE: Ms. Knutson is an 78-year-old white female, who was seen by the Renal Service for acute kidney injury and chronic hyponatremia from SIADH. Volume depletion was given with this patient with improvement of the renal function. She had a superimposed hemodynamically-mediated renal dysfunction. In addition, she was noted to have chronic hyponatremia. She is currently on free water restriction. We have added sodium chloride tabs-1 g p.o. t.i.d. No other new complaints. Doing well. No chest pain or shortness of breath. OBJECTIVE: VITAL SIGNS: Blood pressure 142/75, heart rate 65, respiratory rate 19, temperature 98, and pulse ox 94%. GENERAL: Awake, alert, comfortable, not in distress. SKIN: Adequate turgor. HEENT: Pinkish conjunctivae. Anicteric sclerae. No neck mass. No carotid bruits. No JVD. CHEST: No deformities. LUNGS: Clear breath sounds. No wheezing. No crackles. HEART: Normal sinus rhythm. No murmur. No gallops. No rubs. ABDOMEN: Globular, soft, nontender. No masses. EXTREMITIES: No edema. No deformities. MEDICATIONS: Medications of April 24, 2019, was reviewed. LABORATORY DATA: Laboratories of April 24, 2019; white count 5.3, hemoglobin 11.8. Sodium 127, potassium 3.8, chloride 96, carbon dioxide 24, BUN 12, creatinine 0.9, glucose 83, calcium 8.7. TSH 26. ASSESSMENT AND PLAN: 1. 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 Her hypothyroidism may also be contributing to the hyponatremia. TSH is lower now from 60 to a most recent value of 26. Currently on thyroid replacement. Continue sodium chloride tablets. Continue free water restriction. No indication for any IV hypertonic saline. 2. Acute kidney rccnyp-loblvtkcbtxezlo-tazgpqrz dysfunction. Resolved. Continue to hold off any diuretics and/or MEGHAN inhibitors or ARB. 3. Agree with current management. Job ID: [id number]
[2019-04-24] MEDS ORDERED: Acetaminophen 325 MG TAB PO PRN (20:45)
[2019-04-24] MEDS: Mirtazapine 15 MG TAB PO SCH (21:07)
[2019-04-25 05:28] LABS: Anion Gap 10 mmol/L (10-20); BUN (Urea Nitrogen) 14 mg/dL (9.8-20.1); Calc. Creatinine Clearance 36 mL/min (70-130); Calcium 8.8 mg/dL (7.8-10.44); Carbon Dioxide 27 mmol/L (23-31); Chloride 96 mmol/L (98-107); Estimated GFR-MDRD 48; Glucose 84 mg/dL (83-110); Potassium 3.9 mmol/L (3.5-5.1); Sodium 129 mmol/L (136-145)
[2019-04-25] MEDS: Levothyroxine Sodium 100 MCG TAB PO SCH (06:10)
[2019-04-25] MEDS: Sodium Chloride 1 GM TAB PO SCH ×4 (08:26→22:56)
[2019-04-25] MEDS: Metoprolol Tartrate 25 MG TAB PO SCH ×2 (08:26→22:57)
[2019-04-25] MEDS: Ondansetron ODT 4 MG TAB PO PRN (09:45)
--- NOTE | 2019-04-25 13:10 | PRG ---
DATE OF SERVICE: 04/25/2019 SUBJECTIVE: Ms. Knutson is an 78-year-old white female, who was seen for her acute kidney injury/chronic hyponatremia. Acute kidney injury has been stable and is resolved. The hyponatremia is persistent. This is most likely from underlying SIADH. Currently, on free water restriction and sodium chloride at 1 g t.i.d. No other complaints today. No chest pain or shortness of breath. OBJECTIVE: VITAL SIGNS: Blood pressure 132/63, heart rate 68, respiratory rate 18, temperature 97.7, and pulse ox 94%. GENERAL: Awake, alert, comfortable. SKIN: Adequate turgor. HEENT: Pinkish conjunctivae. Anicteric sclerae. NECK: No neck mass. No carotid bruits. No JVD. CHEST: No deformities. LUNGS: Clear breath sounds. HEART: Normal sinus rhythm. No murmurs. No gallops. No rubs. ABDOMEN: Globular, soft, and nontender. No masses. EXTREMITIES: No edema. No deformities. MEDICATIONS: Medications of April 25, 2019, was reviewed. LABORATORY DATA: Laboratories of April 25, 2019; sodium was 129, potassium 3.9, chloride 96, carbon dioxide 27, BUN 14, creatinine 1.09, and calcium 8.8. ASSESSMENT AND PLAN: 1. Chronic hyponatremia - secondary to syndrome of inappropriate antidiuretic hormone secretion. Continue free water restriction. Continue sodium chloride 1 g p.o. t.i.d. No indication for any IV hypertonic saline. 2. Acute kidney injury, resolved - hemodynamically-mediated renal dysfunction. Due to the stable serum sodium, we will be signing off. Please recall if needed. Job ID: [id number]
[2019-04-25] MEDS: Mirtazapine 15 MG TAB PO SCH (22:56)
[2019-04-26] MEDS: Levothyroxine Sodium 100 MCG TAB PO SCH (06:21)
[2019-04-26] MEDS: Metoprolol Tartrate 25 MG TAB PO SCH (08:09)
[2019-04-26] MEDS: Sodium Chloride 1 GM TAB PO SCH (08:11)
[2019-04-26 08:47] LABS: Anion Gap 12 mmol/L (10-20); BUN (Urea Nitrogen) 11 mg/dL (9.8-20.1); Calc. Creatinine Clearance 40 mL/min (70-130); Calcium 9.2 mg/dL (7.8-10.44); Carbon Dioxide 24 mmol/L (23-31); Chloride 95 mmol/L (98-107); Estimated GFR-MDRD 53; Glucose 89 mg/dL (83-110); Sodium 127 mmol/L (136-145)
[2019-04-26 11:54] VITALS: BP 126/71; TEMP 97.5
== END 2019-04-26 13:10 | DRG 917 ==
LOC: ERS 10:50 → T4-A 12:36 → OBSVTOIN 04-13 09:47
PROVIDERS: ADMIT Internal Medicine; ATTEND Internal Medicine
DX: T42.6X2A Poisoning by other antiepileptic and sedative-hypnotic drugs, intentional self-harm, initial encounter (principal); L89.153 Pressure ulcer of sacral region, stage 3; G93.41 Metabolic encephalopathy; N17.9 Acute kidney failure, unspecified; E22.2 Syndrome of inappropriate secretion of antidiuretic hormone; R45.851 Suicidal ideations; N39.0 Urinary tract infection, site not specified; E03.9 Hypothyroidism, unspecified; F32.9 Major depressive disorder, single episode, unspecified; F41.9 Anxiety disorder, unspecified; E78.5 Hyperlipidemia, unspecified; I25.10 Atherosclerotic heart disease of native coronary artery without angina pectoris; E87.6 Hypokalemia; I12.9 Hypertensive chronic kidney disease with stage 1 through stage 4 chronic kidney disease, or unspecified chronic kidney disease; N18.3 Chronic kidney disease, stage 3 (moderate); I95.1 Orthostatic hypotension; Z91.81 History of falling; Z79.899 Other long term (current) drug therapy
CPT/HCPCS: 36415; 51702; 70450; 72125; 80048; 80053; 80061; 80306; 80307; 81003; 81015; 82436; 82533; 82550; 82570; 83930; 83935; 84133; 84300; 84439; 84443; 84550; 85025; 87077; 87086; 87186; 93005; 96360; 96361; J0696; J1940; J2405; J3490; Q0162